=== PATIENT | male | born 1940 | race Caucasian/White ===

== ENCOUNTER 2020-05-07 14:14 | Emergency (ER) | payer MEDICARE ==
[~2020-05-07] VITALS: Ht 180.3 cm; Wt 86.2 kg
[~2020-05-07 14:14] MED LIST: AMLO5 PO; Amlodipine Bes2.5 MG PO; Ativan1 MG PO; CHOL10002 PO; CLON.1 PO; DILT60ER PO; ENOX40I SC; EUTHYROX125 MCG PO; FISH1000 PO; FOLI1; FOLI1 PO; HYDMOR4 PO; Hydrochloroth12.5 MG PO; IBUP800; IRBE150; LEVOXY; LEVSOD150; LEVSOD175 PO; LORAZEPAM0.5 MG PO; Levaquin500 MG PO; META800; META800 PO; METR250 PO; NAPR500 PO; OLME20; OLME20 PO; OMEP20ER; OMEP20ER PO; OMEPRAZOLE20 MG PO; OXYACE5T PO; PRED20; PROACE100; Percocet 5-3251 EACH PO; SUCR1 PO; SYNTHROID 175 MCG PO; VERA240ER; VERA240ERA; VERA240ERA PO; Valium5 MG PO
[2020-05-07 14:41] LABS: BASOPHILS ABSOLUTE AUTO 0.03 K/mm3 (0.00-0.23); BASOPHILS PERCENT AUTO 1 % (0-2); EOSINOPHILS ABSOLUTE AUTO 0.06 K/mm3 (0.00-0.68); EOSINOPHILS PERCENT AUTO 1 % (0-6); Hematocrit 42.2 % (37.0-53.0); Hemoglobin 14.9 g/dL (13.5-17.5); IMMATURE GRAN ABSOLUTE AUTO 0.02 K/mm3 (0.00-0.10); IMMATURE GRAN PERCENT AUTO 0 % (0-1); LYMPHOCYTES ABSOLUTE AUTO 1.66 K/mm3 (0.84-5.20); LYMPHOCYTES PERCENT AUTO 29 % (21-46); MONOCYTES ABSOLUTE AUTO 0.61 K/mm3 (0.16-1.47); MONOCYTES PERCENT AUTO 11 % (4-13); Mean Corpuscular HGB 32.7 pg (26.0-34.0); Mean Corpuscular HGB Conc 35.3 g/dL (31.5-36.5); Mean Corpuscular Volume 93 fL (80-100); Mean Platelet Volume 11.4 fL (9.1-12.4); NEUTROPHILS ABSOLUTE AUTO 3.32 K/mm3 (1.96-9.15); NEUTROPHILS PERCENT AUTO 58 % (41-73); Platelet Count 162 K/mm3 (150-400); RDW Coefficient Variation 12.4 % (11.7-14.2); RDW Standard Deviation 42.5 fL (35.1-46.3); Red Blood Cell Count 4.56 M/mm3 (4.30-5.90)
[2020-05-07 14:47] LABS: Source, Urine Clean Catch
[2020-05-07 15:05] LABS: Appearance, Urine Clear (Clear); Bilirubin, Urine Neg (Neg); Blood, Urine 4+ (Neg); Color, Urine Yellow (P-Yellow); Glucose Qualitative, Urine Neg (Neg); Ketones, Urine Neg (Neg); Leukocyte Esterase, Urine Neg (Neg); Nitrite, Urine Neg (Neg); Protein, Urine Neg (Neg); Specific Gravity, Urine 1.015 (1.003-1.022); Urobilinogen, Urine NORM (Normal)
[2020-05-07 15:08] LABS: Albumin, Blood 3.7 g/dL (3.4-5.0); Albumin/Globulin Ratio 1.1 (0.8-1.8); Bilirubin, Total 1.4 mg/dL (0.1-1.0); Bun/Creatinine Ratio 12.9 (12.0-20.0); Calcium, Blood 8.7 mg/dL (8.5-10.1); Creatinine, Blood 1.24 mg/dL (0.60-1.20); Globulin, Blood 3.4 g/dL (2.2-4.0); Potassium, Blood 4.3 mmol/L (3.5-5.5); Total Protein, Blood 7.1 g/dL (6.4-8.2)
[2020-05-07 15:31] LABS: Bacteria Rare /hpf; Squamous Epithelial Cells Not Seen /hpf (Few); White Blood Cells, Urine Rare /hpf (0-5)
[2020-05-07] MEDS ORDERED: Bactrim Ds Tab1 EACH PO (16:38)
== END 2020-05-07 17:02 | disposition home or self-care (01) ==
LOC: ER 14:14
PROVIDERS: Emergency Medicine
DX: N45.1 Epididymitis (principal); I10 Essential (primary) hypertension; E03.9 Hypothyroidism, unspecified; Z87.442 Personal history of urinary calculi; Z79.899 Other long term (current) drug therapy; Z88.0 Allergy status to penicillin; Z88.1 Allergy status to other antibiotic agents
CPT/HCPCS: 80053; 81001; 83690; 85025; 93005; 93010; 96374; 99284-25; A9270-GY; J2405

== ENCOUNTER 2020-07-17 09:07 | Emergency (ER) | payer MEDICARE ==
[~2020-07-17] VITALS: Ht 180.3 cm; Wt 88.9 kg
[~2020-07-17 09:07] MED LIST changes: +Bactrim Ds Tab1 EACH PO; +SULFAMETHOXAZO1 EAC1 PO
[2020-07-17] MEDS ORDERED: BACTRIM DS PO (09:38)
[2020-07-17] MEDS ORDERED: NYSTATIN100000 UN1 MT (09:40)
[2020-07-17 10:42] LABS: BASOPHILS ABSOLUTE AUTO 0.05 K/mm3 (0.00-0.23); BASOPHILS PERCENT AUTO 1 % (0-2); EOSINOPHILS ABSOLUTE AUTO 0.07 K/mm3 (0.00-0.68); EOSINOPHILS PERCENT AUTO 1 % (0-6); Hematocrit 42.8 % (37.0-53.0); Hemoglobin 15.5 g/dL (13.5-17.5); IMMATURE GRAN ABSOLUTE AUTO 0.01 K/mm3 (0.00-0.10); IMMATURE GRAN PERCENT AUTO 0 % (0-1); LYMPHOCYTES ABSOLUTE AUTO 1.71 K/mm3 (0.84-5.20); LYMPHOCYTES PERCENT AUTO 24 % (21-46); MONOCYTES ABSOLUTE AUTO 0.69 K/mm3 (0.16-1.47); MONOCYTES PERCENT AUTO 10 % (4-13); Mean Corpuscular HGB 33.7 pg (26.0-34.0); Mean Corpuscular HGB Conc 36.2 g/dL (31.5-36.5); Mean Corpuscular Volume 93 fL (80-100); NEUTROPHILS ABSOLUTE AUTO 4.52 K/mm3 (1.96-9.15); NEUTROPHILS PERCENT AUTO 64 % (41-73); Platelet Count 161 K/mm3 (150-400); RDW Coefficient Variation 12.4 % (11.7-14.2); RDW Standard Deviation 42.5 fL (35.1-46.3); White Blood Cell Count 7.05 K/mm3 (4.00-11.30)
[2020-07-17 10:53] LABS: Alanine Aminotransfer (ALT/SGP 21 U/L (12-78); Albumin/Globulin Ratio 1.3 (0.8-1.8); Alk Phos 44 U/L (50-136); Anion Gap 5 mmol/L (6-16); Aspartate Aminotrans (AST/SGOT 19 U/L (12-37); Bilirubin, Total 1.7 mg/dL (0.1-1.0); Blood Urea Nitrogen 16 mg/dL (8-24); Bun/Creatinine Ratio 12.5 (12.0-20.0); CO2, Blood 27 mmol/L (21-32); Calcium, Blood 9.1 mg/dL (8.5-10.1); Chloride, Blood 108 mmol/L (98-108); Creatinine, Blood 1.28 mg/dL (0.60-1.20); Globulin, Blood 3.1 g/dL (2.2-4.0); Glomerular Filtration Rate 57 (60-); Glucose, Blood 105 mg/dL (70-99); Potassium, Blood 3.8 mmol/L (3.5-5.5); Sodium, Blood 140 mmol/L (136-145); Total Protein, Blood 7.1 g/dL (6.4-8.2)
[2020-07-17 10:56] LABS: Troponin I <0.015 ng/mL (0.000-0.040)
[2020-07-17 10:59] LABS: Thyroid Stimulating Hormone 0.915 uIU/mL (0.360-4.800)
[2020-07-17 13:38] LABS: Source, Urine Voided
[2020-07-17 13:43] LABS: Appearance, Urine Clear (Clear); Bilirubin, Urine Neg (Neg); Blood, Urine Neg (Neg); Color, Urine Yellow (P-Yellow); Glucose Qualitative, Urine Neg (Neg); Ketones, Urine Neg (Neg); Leukocyte Esterase, Urine Neg (Neg); Nitrite, Urine Neg (Neg); Protein, Urine Neg (Neg); Urobilinogen, Urine NORM (Normal); pH, Urine 6.5 (5.0-8.0)
[2020-07-18] MEDS ORDERED: [UNRECOGNIZED DRUG - CODE] PO (11:40)
[2020-12-14] MEDS ORDERED: AMLO10 PO (10:11)
[2020-12-14] MEDS ORDERED: ASPI325EC PO (10:11)
[2020-12-14] MEDS ORDERED: ACIDOPHILUS1 EAC3 PO (10:11)
[2020-12-14] MEDS ORDERED: ATOR10 PO (10:12)
[2020-12-14] MEDS ORDERED: CLOT10 PO (10:12)
[2020-12-14] MEDS ORDERED: LORA.5 ×2 (10:12→10:16)
[2020-12-14] MEDS ORDERED: CLOB.05TO (10:12)
[2020-12-14] MEDS ORDERED: CLARITIN-D 121 EAC1 PO (10:12)
[2020-12-14] MEDS ORDERED: HYDROCORTISONE ×2 (10:13→10:14)
[2020-12-14] MEDS ORDERED: LIDOCAINE ×2 (10:13→10:14)
[2020-12-14] MEDS ORDERED: Diflucan150 MG PO (10:15)
[2020-12-14] MEDS ORDERED: BISA10S PR (10:15)
[2020-12-14] MEDS ORDERED: FLUC100 PO (10:15)
[2020-12-14] MEDS ORDERED: MECL25 (10:16)
[2020-12-14] MEDS ORDERED: LEVO-T125 MC1 PO (10:16)
[2020-12-14] MEDS ORDERED: NYSTATIN100000 UN1 MT (10:17)
[2020-12-14] MEDS ORDERED: OMEP20ER PO (10:17)
[2020-12-14] MEDS ORDERED: OLME20 PO (10:17)
[2020-12-14] MEDS ORDERED: METAMUCIL POWD575 GM PO (10:17)
[2020-12-14] MEDS ORDERED: ACETAMINOPHEN500 MG PO (10:18)
== END 2020-07-17 14:37 | disposition home or self-care (01) ==
LOC: ER 09:07
PROVIDERS: Emergency Medicine
DX: F43.9 Reaction to severe stress, unspecified (principal); I10 Essential (primary) hypertension; E03.9 Hypothyroidism, unspecified; Z88.0 Allergy status to penicillin; Z88.1 Allergy status to other antibiotic agents; Z79.899 Other long term (current) drug therapy
CPT/HCPCS: 70450; 76870; 80053; 81003; 84443; 84484; 85025; 93005; 93010; 99285-25

== ENCOUNTER 2020-07-18 07:52 | Observation (INO) | payer MEDICARE ==
[~2020-07-18] VITALS: Ht 177.8 cm; Wt 88.0 kg
[~2020-07-18 07:52] MED LIST changes: +BACTRIM DS PO; +NYSTATIN100000 UN1 MT
[2020-07-18 08:58] LABS: BASOPHILS ABSOLUTE AUTO 0.05 K/mm3 (0.00-0.23); BASOPHILS PERCENT AUTO 1 % (0-2); EOSINOPHILS ABSOLUTE AUTO 0.06 K/mm3 (0.00-0.68); EOSINOPHILS PERCENT AUTO 1 % (0-6); Hematocrit 44.1 % (37.0-53.0); Hemoglobin 15.6 g/dL (13.5-17.5); IMMATURE GRAN ABSOLUTE AUTO 0.01 K/mm3 (0.00-0.10); IMMATURE GRAN PERCENT AUTO 0 % (0-1); LYMPHOCYTES ABSOLUTE AUTO 1.45 K/mm3 (0.84-5.20); LYMPHOCYTES PERCENT AUTO 32 % (21-46); MONOCYTES ABSOLUTE AUTO 0.46 K/mm3 (0.16-1.47); MONOCYTES PERCENT AUTO 10 % (4-13); Mean Corpuscular HGB 33.2 pg (26.0-34.0); Mean Corpuscular HGB Conc 35.4 g/dL (31.5-36.5); Mean Corpuscular Volume 94 fL (80-100); Mean Platelet Volume 11.4 fL (9.1-12.4); NEUTROPHILS ABSOLUTE AUTO 2.56 K/mm3 (1.96-9.15); NEUTROPHILS PERCENT AUTO 56 % (41-73); Platelet Count 151 K/mm3 (150-400); RDW Coefficient Variation 12.5 % (11.7-14.2); RDW Standard Deviation 43.3 fL (35.1-46.3); White Blood Cell Count 4.59 K/mm3 (4.00-11.30)
[2020-07-18 09:20] LABS: Alanine Aminotransfer (ALT/SGP 21 U/L (12-78); Albumin, Blood 3.9 g/dL (3.4-5.0); Albumin/Globulin Ratio 1.1 (0.8-1.8); Alk Phos 48 U/L (50-136); Anion Gap 7 mmol/L (6-16); Aspartate Aminotrans (AST/SGOT 20 U/L (12-37); Bilirubin, Total 2.7 mg/dL (0.1-1.0); Blood Urea Nitrogen 19 mg/dL (8-24); CO2, Blood 23 mmol/L (21-32); Calcium, Blood 9.1 mg/dL (8.5-10.1); Chloride, Blood 108 mmol/L (98-108); Creatinine, Blood 1.46 mg/dL (0.60-1.20); Globulin, Blood 3.4 g/dL (2.2-4.0); Glomerular Filtration Rate 49 (60-); Glucose, Blood 106 mg/dL (70-99); Potassium, Blood 4.1 mmol/L (3.5-5.5); Sodium, Blood 138 mmol/L (136-145); Total Protein, Blood 7.3 g/dL (6.4-8.2); Troponin I <0.015 ng/mL (0.000-0.040)
[2020-07-18] MEDS ORDERED: [UNRECOGNIZED DRUG - CODE] PO (11:40)
--- NOTE | 2020-07-18 16:29 | NUR ---
ADMISSION NOTED TO BE MEDICAL STATUS. NOTIFIED JACK GILLETTE RN WHO CALLED DR. ELAM AND HE CONFIRMED THAT PATIENT IS MEDICAL STATUS. NOTIFIED ED RN AND MACHINE STAKER.
--- NOTE | 2020-07-18 19:35 | NUR ---
HE ARRIVED TO [facility] THIS EVENING FROM THE ED. HE IS A&O, PLEASANT AND COOPERATIVE. HE HAD HIS DAUGHTER AND GRANDDAUGHTER WITH HIM. HE HAS NO PAIN, DIZZINESS OR SOB. HE FEELS HIS MEMORY IS NOT QUITE AT HIS BASELINE. HE IS EATING DINNER. WILL PUT TELE ON WHEN IT ARRIVES. NIGHTSHIFT NURSE WILL SET BED ALARM LATER IN CASE HE BECOMES CONFUSED BY MORNING LIKE HE DID AT HOME THE PAST 2 MORNINGS. ORIENTED TO ROOM AND FALL PRECAUTIONS.
--- NOTE | 2020-07-19 02:08 | NUR ---
PT REFUSED SCD'S, NURSE NOTIFED
--- NOTE | 2020-07-19 06:42 | NUR ---
SUMMARY: PT A/OX3-4 W/BED ALARM ON D/T MILDLY FORGETFULL AT TIMES AND POSSIBLE FALL RISK. HE'S PLEASANT AND COOPERATIVE W/CARE AND IS INDEPENDENT AT BASELINE SO ISN'T ACCUSTOMED TO REQUIRING ASSIST BUT UNDERSTANDS HEIGHTENED FALL RISK R/T SYMPTOMS PRECEEDING ADMISSION. HE'S DENIED DIZZYNESS, CONFUSION, CP, WEAKNESS AND ALL OTHER S/S DISTRESS. HE DOES ADMIT THAT STRENGTH SEEMS TO CORRELATE W/MENTATION AND WHEN EXPERIENCING BOUTS OF AMS HE IS VERY WEAK BUT WHEN A/O HE HAS FULL STRENGTH PER USUAL. PT WAS S.TERI T/O NOCTE ON TELEMETRY W/HR 40'S AND UP TO 70'S W/AMBULAITION. HE WAS SBA TO TOILET TO VOID AND DENIED ANY ISSUES DURING TRANSFER. PT REFUSED PAS BUT HAD LOVENOX FOR DVT PROPHYLAXIS. FLU VAC OBTAINED THIS SHIFT. AUTHORIZED PT TO RECIEVED HS CLONIDINE DESPITE BRADYCARDIA AND HR DIDN'T APPEAR TO BE ADVERSELY EFFECTED. NO ACUTE CHANGES, VSS/AFEBRILE. WCTM AND REPORT TO DAY RN.
--- NOTE | 2020-07-19 10:21 | NUR ---
ADMIT:07/18/20 DISCHARGE: DX: encephalopathy CC: [email or web address] DION CALL: RESIDENCE: home CAREGIVER: Hippa: DEXTER COTTRELL (CHILD) DX: asthma, htn, ckd 3, spinal stenosis, osteoarthritis, naman, see list DME: no record CCM: no record HOME HEALTH: no record SUMMARY:Admit 07/18/20 Asif is being seen by Dr Kamara this week- through Saturday. Obs status. Will assess and discuss discharge planning. melba Coyd ( tool repair technician) provided information in the ED. ASSESSMENT: 1. Acute onset of dizziness with dysarthria, cannot rule out transient ischemic attack.
--- NOTE | 2020-07-19 11:10 | NUR ---
In bed, patient was answering questions for MRI screening. In the middle of answering questions, patient was noted to have difficulty finding words. Patient stated, "I am going to be honest with you, I am having that episode again" and wasn't able to find any more words for approximately 1 minute. Patient reported mild dizziness, blurry vision, and pounding in the temples of his head. Also reports a head ache of 3/10. Was able to participate with ortho vitals. MRI form completed and faxed. Dr. Kamara notified of ortho vitals and this episode.
[2020-07-19 14:13] LABS: Percent Saturation 79.5 % (20.0-50.0)
--- NOTE | 2020-07-19 15:05 | NUR ---
CONSTIPATION C/O constipation and not having a bm x 3 days. Reports regular daily bowels with metamucil bid. Received T.O. from Dr. Kamara for daily PRN Dulcolax for constipation and Metamucil 1 pack BID.
--- NOTE | 2020-07-19 16:58 | NUR ---
07/19/20 Met with Asif in his room, completed assessment for returning home. He hopes to discharge back home in the next couple of days. His daughter and grandaughter live in the area and can assist him if needed. No home health or dme needed at this visit. Left transition of care form from [place] hanging from white board. Will continue to follow him for discharge planning. cp
--- NOTE | 2020-07-19 19:18 | NUR ---
Shift Summary A/Ox3, family reports patient can be a little forgetful. Up independently. No other episode of blurry vision/difficulty finding words since this morning. Daughter visited and would like an update regarding diagnostic results tomorrow, info passed onto night RN. Tele: SB 47. Per tele, patient HR has fluctuated from mid 70's to low 42's throughout shift. Worked with PT/OT, independent in room. Make needs known. Report given to oncoming RN.
--- NOTE | 2020-07-20 01:42 | NUR ---
PCU SET UP OPERATOR ALERTED RN THAT PT REMAINS BRADYCARDIC BUT HR HAS TRENDED DOWNWARD TO 37 BPM, SUSTAINING FOR 5-10 MINUTES AT A TIME AND AVERGING 40'S BPM. HE'S SLEEPING AND AWOKE TO DENY S/S CARDIAC DISTRESS. MADE AWARE W/CMP RX'D FOR AM TO CHECK POTASSIUM. NO ADDITIONAL ORDERS RECIEVED AT THIS TIME. WCTM TO MONITOR FOR ACUTE CHANGES/WORSENING.
[2020-07-20 05:45] LABS: Alanine Aminotransfer (ALT/SGP 21 U/L (12-78); Albumin, Blood 3.7 g/dL (3.4-5.0); Albumin/Globulin Ratio 1.1 (0.8-1.8); Alk Phos 43 U/L (50-136); Anion Gap 7 mmol/L (6-16); Aspartate Aminotrans (AST/SGOT 21 U/L (12-37); Bilirubin, Total 2.3 mg/dL (0.1-1.0); Blood Urea Nitrogen 23 mg/dL (8-24); Bun/Creatinine Ratio 16.7 (12.0-20.0); CHOL/HDL RATIO 4.1; CO2, Blood 24 mmol/L (21-32); Calcium, Blood 8.6 mg/dL (8.5-10.1); Chloride, Blood 108 mmol/L (98-108); Cholesterol 147 mg/dL (50-200); Creatinine, Blood 1.38 mg/dL (0.60-1.20); Globulin, Blood 3.4 g/dL (2.2-4.0); Glomerular Filtration Rate 53 (60-); Glucose, Blood 107 mg/dL (70-99); HDL Cholesterol 36 mg/dL (>39); LDL/HDL RATIO 2.1; Low Density Lipoprotein Chol 77 mg/dL (0-110); Potassium, Blood 3.9 mmol/L (3.5-5.5); Sodium, Blood 139 mmol/L (136-145); Total Protein, Blood 7.1 g/dL (6.4-8.2); Triglycerides 170 mg/dL (30-160); Very Low Density Lipoprot Chol 34 mg/dL (6-32)
--- NOTE | 2020-07-20 06:27 | NUR ---
SUMMARY: PT A/OX4, PLEASANT/COOPERATIVE AND SPECIFIES NEEDS. HES' UP INDEPENDENTLY IN ROOM BUT AWARE OF LIMITATIONS AND NEED TO CALL FOR SBA IF DIZZY, HAS BLURRED VISION OR ANY OTHER S/S DISTRESS. HE'S SLEPT MAJORITY OF NOCTE EXCEPT WHEN UP TO VOID. HE HAD X1 EPISODE OF MILD DIZZYNESS BUT IT RESOLVED SPONTANEOSLY AFTER ONLY A FEW MINUTES AND THEIR WERE NO ADDITIONAL ASSOCIATED SYMPTOMS. HE WAS S.TERI MOST OF NOCTE W/HR AVERAGING 40'S BUT LOW 37 BPM, RANGE 37-62 BPM THIS SHIFT. MD AWARE W/CMP RX'D TO CHECK POTASSIUM WHICH WAS 3.9 THIS AM. FASTING LIPID PANEL COMPLETED, SEE LABS FOR DETAILS. NO ACUTE CHANGES, VSS/AFEBRILE BUT PT SLIGHTLY HYPERTENSIVE THIS AM (160/80) AND HAS SCHEDULED 0900 ANTIHYPERTENSIVES. WCTM AND REPORT TO DAY RN.
--- NOTE | 2020-07-20 13:06 | NUR ---
ASKED IF HE WANTED CLONIDINE HELD WITH HEART RATE AT 41. HELD AND THEN TALK TO TO SEE WHAT HE WANTS DONE AFTER HIS EVAL.
--- NOTE | 2020-07-20 13:18 | NUR ---
NOTIFIED WE CAN NOT DO PHLEBOTOMY HE ORDERED. CAN DO AT [facility]. STS HE CAN DO IT AT CLINIC. ADVISED THAT HOSPITAL CAN NOT DO WHAT ORDERED. AWAITING
--- NOTE | 2020-07-20 14:30 | NUR ---
LEFT VOICE MAIL WITH - SAW PATIENT. CONTINUE ASA AND STATIN. GRADUAL DECREASE CLONIDINE - BID FOR 1 WK THEN QD FOR ONE WK THEN QOD FOR 3 DAYS. NEEDS ZIO MONITOR FOR 30 DAYS THEN F/U CARDIOLOGY
--- NOTE | 2020-07-20 18:06 | NUR ---
ALERT. ORIENTED. COOPERATIVE. PLEASANT. ABLE TO MAKE NEEDS KNOWN. HAD EPISODE OF WEAKNESS AND DIFFICULTY FORMING WORDS TODAY WITH AWARE. AND WERE IN FOR CONSULT. IF PATIENT IS D'C TOMORROW WILL NEED ZIO MONITOR AND HAS F/U APPT WITH FOR LATE AFTERNOON. UNLABORED RESPIRATIONS. DENIES ANY CHEST PAIN OR PRESSURE. TELE ONAND AT THIS TIME SB AT 51. ADVISED PCU TECH PATIENT SHOULD BE 50-60 AND HOPEFULLY WILL NOT FALL INTO 40'S. CLONIDINE D'C. WCTM
--- NOTE | 2020-07-21 03:44 | NUR ---
SHIFT SUMMARY PATIENT HAD NO ACUTE CHANGES OBSERVED. AXOX 3 AND ONE ASSIST TO BSC. PIV REMAINS INTACT. DISTANCE LEARNING ADMINISTRATOR REPORTS SB@50. DENIES PAIN, SOB, AND N/V. HYPERTENSIVE. BP MEDICATION CHANGED TO NORVASC. NS INFUSING AT 125mL/HR. NO EVENTS OF BLURRY VISION OR DIZZINESS. AFEBRILE. CALL LIGHT IN REACH. BED IN LOWEST POSITION. WILL CONTINUE TO MONITOR UNTIL DAY SHIFT NURSE ASSUMES CARE.
--- NOTE | 2020-07-21 11:27 | NUR ---
DR. SINGH IN TO VISIT AT ABOUT 0930. UPPED NORVASC TO 10 MG DAILY AND TO GET XTRA 5 MG TODAY.
--- NOTE | 2020-07-21 12:11 | NUR ---
PER DR. ELAM GIVE ANOTHER OLMESARTAN IF B.P. ABOVE 150 SYSTOLIC. STOP IV FLUIDS
[2020-07-21] MEDS ORDERED: HYDRA25 PO (14:26)
--- NOTE | 2020-07-21 14:27 | NUR ---
TALKED TO ABOUT B.P. GIVE HYDRALAZINE 20 MG IV NOW AND HYDRALAZINE ON D'C ORDER 25 MG BID HOLD FOR SYSTOLIC <110.
[2020-07-21] MEDS ORDERED: AMLO10 PO (14:54)
[2020-07-21] MEDS ORDERED: ATOR10 PO (14:54)
[2020-07-21] MEDS ORDERED: ASPI325 PO (14:54)
--- NOTE | 2020-07-21 14:56 | NUR ---
TALKED TO ABOUT B.P. AND HEART RATE IN 130'S. NITRO PASTE 1IN C.W. TO COME DOWN
[2020-07-21 15:31] LABS: Source, Urine Catheter
[2020-07-21 15:40] LABS: Appearance, Urine Clear (Clear); Bilirubin, Urine Neg (Neg); Blood, Urine Neg (Neg); Color, Urine Yellow (P-Yellow); Glucose Qualitative, Urine Neg (Neg); Ketones, Urine Neg (Neg); Leukocyte Esterase, Urine Neg (Neg); Nitrite, Urine Neg (Neg); Protein, Urine Neg (Neg); Specific Gravity, Urine 1.005 (1.003-1.022); Urobilinogen, Urine NORM (Normal)
--- NOTE | 2020-07-21 16:57 | NUR ---
1510 IN ROOM.SEE VS. EKG BEING DONE. ORDERS FOR LABETELOL AND THEN ATIVAN. NO FEVER. PATIENT WAS SHAKING, WHICH STARTED AFTER ABOUT 10 TO 15 MIN AFTER RECEIVING APRESOLINE IV. PCU TECH AWARE OF MEDS GIVEN. VSS STABLE AFTER LABETELOL GIVEN. 165 AC TAKEN OUT PER PATIENT REQUEST WITH AWARE. MD UPDATED ON VS AND HE TALKED TO DR. SINGH ABOUT EPISODE. PATIENT TO BE BACK ON CATAPRESS DECREASING DOSE.
--- NOTE | 2020-07-21 17:35 | NUR ---
07/21/[address] Kamara, hope to discharge today, patients condition worsened, electrocardiogram ordered. Met with daughter out side of patient room, concerned for her fathers condition. Unsure of discharge plan at this time. Will continue to follow for discharge planning. cp
--- NOTE | 2020-07-21 17:46 | NUR ---
ASKED FOR MED FOR ANXIETY. STS WILL PUT HIM ON ATIVAN AND HE WILL ORDER IT.
--- NOTE | 2020-07-21 18:37 | NUR ---
SEE PRIOR NOTES. ALERT. ORIENTED. DENIES ANY PAIN/DISCOMFORT. HAS URINATED SINCE [place] AC. COOPERATIVE. UNLABORED RESPIRATION. ADVISED PATIENT/FAMILY WILL BE ON DECREASING DOSE OF CATAPRESS. WILL PROBABLY HAVE PHLEBOTOMY DONE AT OFFICE ON SATURDAY. APPEARS TO BE RESTING COMFORTABLY AT THIS TIME. CURRENTLY SR AT 94. STEADY GAIT IN ROOM. [facility]
--- NOTE | 2020-07-22 05:07 | NUR ---
SHIFT SUMMARY ADMITTED FOR BRADYCARDIA (S/SX DIZZY, SLURRED SPEECH). FULL CODE. PLAN IS FOR DC HOME TODAY IF STABLE. DR SINGH IS CARDIOLOGY CONSULT. TELEMETRY: NSR @ 88 BPM. PT RECENTLY STOPPED TAKING CLONIDINE ABRUPTLY, WHICH COULD BE CAUSATION OF EPISODIC TACHYCARDIA AND HTN. PT DID HAVE ONE EPISODE OF TACHYCARDIA THIS SHIFT, WAS FOUND TO BE AMBULATING IN HIS ROOM. THIS EPISODE WAS BRIEF ACCORDING TO TELEMETRY. PT DENIED S/SX. HX: HEMOCHROMATOSIS REQUIRING PHLEBOTOMY (DR KHAN IS CONSULT)
--- NOTE | 2020-07-22 05:29 | NUR ---
PT NAUSEOUS PT ACTIVELY VOMITING AND TREMBLING. ZOFRAN AND ATIVAN ADMINISTERED. WILL HOLD THYROID PO MED UNTIL NAUSEA SUBSIDES
[2020-07-22] MEDS ORDERED: Ativan1 MG PO (14:22)
--- NOTE | 2020-07-22 16:30 | NUR ---
DISCHARGE SUMMARY PT A/O X4; PLEASANT AND COOPERATIVE WITH CARE. PT C/O ANXIETY AND MEDICATED WITH ATIVAN WITH GOOD EFFECT. PT DISCHARGED HOME WITH ATIVAN PRESCRIPTION. PREVIOUSLY, THE PATIENT WAS ABRUPTLY TAKEN OFF HIS CLONIDINE AND EXPERIENCED WITHDRAWAL SYMPTOMS. PT HAS SINCE BEEN PUT BACK ON HIS CLONIDINE AND THOSE SYMPTOMS HAVE SUBSIDED. HAD 2 MOMENTS OF TACHYCARDIA THIS SHIFT WHEN AMBULATING AND AN ELEVATED BP; PHYSICIAN NOTIFIED. DC'D HOME WITH A ZIO PATCH AND WILL FOLLOW UP WITH VANDANA, DR. SINGH, AND DR. KHAN. PT TO TAPER OFF OF HIS CLONIDINE PRESCRIPTION WELL AND INSTRUCTIONS WERE PROVIDED TO THE PATIENT. DAUGHTER DROVE THE PATIENT HOME.
--- NOTE | 2020-07-22 17:33 | NUR ---
SUMMARY:Admit 07/18/20 07/22/[address] Kamara, follow up efm 1 week. Met with Asif, chino amber call on Saturday or Saturday, call center agent number, urgent care. Did not identify any care needs today. Daughter purchased a fall pendant for him. Follow up cardiology 1 month. Daughter will pick him up and take him to pharmacy if needed. cp
[2020-07-27 20:07] LABS: METANEPH/CREAT RATIO 0.3 (0.0-1.0)
[2020-07-31 04:11] LABS: 5-HIAA, URINE 1.2 mg/L (Undefined); VMA/CRT, RANDOM U 3.9 (0.0-6.0)
[2020-12-14] MEDS ORDERED: ASPI325EC PO (10:11)
[2020-12-14] MEDS ORDERED: AMLO10 PO (10:11)
[2020-12-14] MEDS ORDERED: ACIDOPHILUS1 EAC3 PO (10:11)
[2020-12-14] MEDS ORDERED: LORA.5 ×2 (10:12→10:16)
[2020-12-14] MEDS ORDERED: CLOB.05TO (10:12)
[2020-12-14] MEDS ORDERED: CLOT10 PO (10:12)
[2020-12-14] MEDS ORDERED: CLARITIN-D 121 EAC1 PO (10:12)
[2020-12-14] MEDS ORDERED: ATOR10 PO (10:12)
[2020-12-14] MEDS ORDERED: LIDOCAINE ×2 (10:13→10:14)
[2020-12-14] MEDS ORDERED: HYDROCORTISONE ×2 (10:13→10:14)
[2020-12-14] MEDS ORDERED: Diflucan150 MG PO (10:15)
[2020-12-14] MEDS ORDERED: BISA10S PR (10:15)
[2020-12-14] MEDS ORDERED: FLUC100 PO (10:15)
[2020-12-14] MEDS ORDERED: MECL25 (10:16)
[2020-12-14] MEDS ORDERED: LEVO-T125 MC1 PO (10:16)
[2020-12-14] MEDS ORDERED: OMEP20ER PO (10:17)
[2020-12-14] MEDS ORDERED: OLME20 PO (10:17)
[2020-12-14] MEDS ORDERED: METAMUCIL POWD575 GM PO (10:17)
[2020-12-14] MEDS ORDERED: NYSTATIN100000 UN1 MT (10:17)
[2020-12-14] MEDS ORDERED: ACETAMINOPHEN500 MG PO (10:18)
== END 2020-07-22 16:18 | disposition home or self-care (01) ==
LOC: ER 07:52 → MEDS 07:53 → ERHOLD 07:53 → MEDS 17:54 → ENPENDDIS 07-22 13:40 → MEDS 07-22 16:18
PROVIDERS: Emergency Medicine; ADMIT Internal Medicine
DX: R42 Dizziness and giddiness (principal); R41.82 Altered mental status, unspecified; R47.1 Dysarthria and anarthria; R00.1 Bradycardia, unspecified; I44.0 Atrioventricular block, first degree; E83.110 Hereditary hemochromatosis; I16.1 Hypertensive emergency; I12.9 Hypertensive chronic kidney disease with stage 1 through stage 4 chronic kidney disease, or unspecified chronic kidney disease; N18.30 Chronic kidney disease, stage 3 unspecified; E03.9 Hypothyroidism, unspecified; I86.1 Scrotal varices; B37.0 Candidal stomatitis; I95.1 Orthostatic hypotension; E78.1 Pure hyperglyceridemia; F41.9 Anxiety disorder, unspecified; Z96.641 Presence of right artificial hip joint; Z88.1 Allergy status to other antibiotic agents; Z88.0 Allergy status to penicillin; Z23 Encounter for immunization
CPT/HCPCS: 36415; 70450; 70551; 71045; 80053; 80061; 81003; 82570; 82728; 83497; 83540; 83550; 83835; 83880; 84439; 84484; 84585; 85025; 93005; 93010; 93246; 93306; 96372; 96374; 96375; 96376; 97165; 97530; 99285-25; A9270; G0008; G0378; J0360; J1650; J2060; J2405; J7030; Q2038

== ENCOUNTER 2020-07-28 08:10 | Emergency (ER) | payer MEDICARE ==
[~2020-07-28] VITALS: Ht 182.9 cm; Wt 86.2 kg
[~2020-07-28 08:10] MED LIST changes: +AMLO10 PO; +ASPI325 PO; +ATOR10 PO; +HYDRA25 PO; +[UNRECOGNIZED DRUG - CODE] PO
[2020-07-28] MEDS ORDERED: LIDO5TO UD (08:43)
[2020-07-28 08:46] LABS: BASOPHILS ABSOLUTE AUTO 0.06 K/mm3 (0.00-0.23); BASOPHILS PERCENT AUTO 1 % (0-2); EOSINOPHILS ABSOLUTE AUTO 0.07 K/mm3 (0.00-0.68); EOSINOPHILS PERCENT AUTO 1 % (0-6); Hematocrit 37.5 % (37.0-53.0); Hemoglobin 13.9 g/dL (13.5-17.5); IMMATURE GRAN ABSOLUTE AUTO 0.02 K/mm3 (0.00-0.10); IMMATURE GRAN PERCENT AUTO 0 % (0-1); LYMPHOCYTES ABSOLUTE AUTO 1.97 K/mm3 (0.84-5.20); LYMPHOCYTES PERCENT AUTO 22 % (21-46); MONOCYTES ABSOLUTE AUTO 0.63 K/mm3 (0.16-1.47); MONOCYTES PERCENT AUTO 7 % (4-13); Mean Corpuscular HGB 33.9 pg (26.0-34.0); Mean Corpuscular HGB Conc 37.1 g/dL (31.5-36.5); Mean Corpuscular Volume 92 fL (80-100); NEUTROPHILS ABSOLUTE AUTO 6.34 K/mm3 (1.96-9.15); NEUTROPHILS PERCENT AUTO 70 % (41-73); Platelet Count 190 K/mm3 (150-400); RDW Coefficient Variation 12.4 % (11.7-14.2); RDW Standard Deviation 41.6 fL (35.1-46.3); White Blood Cell Count 9.09 K/mm3 (4.00-11.30)
[2020-07-28 09:16] LABS: Alanine Aminotransfer (ALT/SGP 20 U/L (12-78); Albumin/Globulin Ratio 1.2 (0.8-1.8); Alk Phos 38 U/L (50-136); Anion Gap 9 mmol/L (6-16); Aspartate Aminotrans (AST/SGOT 16 U/L (12-37); Blood Urea Nitrogen 19 mg/dL (8-24); Bun/Creatinine Ratio 16.4 (12.0-20.0); CO2, Blood 23 mmol/L (21-32); Calcium, Blood 8.6 mg/dL (8.5-10.1); Chloride, Blood 109 mmol/L (98-108); Creatinine, Blood 1.16 mg/dL (0.60-1.20); Globulin, Blood 3.2 g/dL (2.2-4.0); Glomerular Filtration Rate >60 (60-); Glucose, Blood 123 mg/dL (70-99); Potassium, Blood 3.2 mmol/L (3.5-5.5); Sodium, Blood 141 mmol/L (136-145); Total Protein, Blood 7.2 g/dL (6.4-8.2)
[2020-07-28] MEDS ORDERED: BISA10S PR (10:08)
[2020-12-14] MEDS ORDERED: ASPI325EC PO (10:11)
[2020-12-14] MEDS ORDERED: AMLO10 PO (10:11)
[2020-12-14] MEDS ORDERED: ACIDOPHILUS1 EAC3 PO (10:11)
[2020-12-14] MEDS ORDERED: CLARITIN-D 121 EAC1 PO (10:12)
[2020-12-14] MEDS ORDERED: LORA.5 ×2 (10:12→10:16)
[2020-12-14] MEDS ORDERED: CLOT10 PO (10:12)
[2020-12-14] MEDS ORDERED: ATOR10 PO (10:12)
[2020-12-14] MEDS ORDERED: CLOB.05TO (10:12)
[2020-12-14] MEDS ORDERED: LIDOCAINE ×2 (10:13→10:14)
[2020-12-14] MEDS ORDERED: HYDROCORTISONE ×2 (10:13→10:14)
[2020-12-14] MEDS ORDERED: Diflucan150 MG PO (10:15)
[2020-12-14] MEDS ORDERED: BISA10S PR (10:15)
[2020-12-14] MEDS ORDERED: FLUC100 PO (10:15)
[2020-12-14] MEDS ORDERED: LEVO-T125 MC1 PO (10:16)
[2020-12-14] MEDS ORDERED: MECL25 (10:16)
[2020-12-14] MEDS ORDERED: METAMUCIL POWD575 GM PO (10:17)
[2020-12-14] MEDS ORDERED: OMEP20ER PO (10:17)
[2020-12-14] MEDS ORDERED: NYSTATIN100000 UN1 MT (10:17)
[2020-12-14] MEDS ORDERED: OLME20 PO (10:17)
[2020-12-14] MEDS ORDERED: ACETAMINOPHEN500 MG PO (10:18)
== END 2020-07-28 10:52 | disposition home or self-care (01) ==
LOC: ER 08:10
PROVIDERS: Emergency Medicine
DX: K56.41 Fecal impaction (principal); I10 Essential (primary) hypertension; E03.9 Hypothyroidism, unspecified; N18.30 Chronic kidney disease, stage 3 unspecified; Z88.0 Allergy status to penicillin; Z88.1 Allergy status to other antibiotic agents; Z79.82 Long term (current) use of aspirin; Z79.02 Long term (current) use of antithrombotics/antiplatelets; Z79.899 Other long term (current) drug therapy
CPT/HCPCS: 36415; 74018; 80053; 85025; 99284-25; A9270

== ENCOUNTER 2020-12-22 08:43 | Day surgery (SDC) | payer MEDICARE ==
[~2020-12-22] VITALS: Ht 180.3 cm; Wt 89.9 kg
[~2020-12-22 08:43] MED LIST changes: +ACETAMINOPHEN500 MG PO; +ACIDOPHILUS1 EAC3 PO; +ASPI325EC PO; +BISA10S PR; +CLARITIN-D 121 EAC1 PO; +CLOB.05TO; +CLOT10 PO; +Diflucan150 MG PO; +FLUC100 PO; +HYDROCORTISONE; +LEVO-T125 MC1 PO; +LIDO5TO UD; +LIDOCAINE; +LORA.5; +MECL25; +METAMUCIL POWD575 GM PO
== END 2020-12-22 10:55 | disposition home or self-care (01) ==
LOC: ORSCSDS 08:43
PROVIDERS: Surgery
PROC: 0DB48ZX Excision of Esophagogastric Junction, Via Natural or Artificial Opening Endoscopic, Diagnostic (ICD-10-PCS; principal; 2020-12-22 10:45)
PROC: 0DB68ZX Excision of Stomach, Via Natural or Artificial Opening Endoscopic, Diagnostic (ICD-10-PCS; principal; 2020-12-22 10:45)
DX: K22.70 Barrett's esophagus without dysplasia (principal); K44.9 Diaphragmatic hernia without obstruction or gangrene; K21.00 Gastro-esophageal reflux disease with esophagitis, without bleeding; K31.89 Other diseases of stomach and duodenum; K29.70 Gastritis, unspecified, without bleeding
CPT/HCPCS: 82947; 88305; 88342; J2704; J7120

== ENCOUNTER → 2021-12-07 | Outpatient (CLI) | payer MEDICARE ==
[2021-12-08 10:15] LABS: Stool Occult Bld Immuno 1 Negative (NEGATIVE)
== END | disposition home or self-care (01) ==
LOC: LAB 08:15 → LAB SHORT 08:15
PROVIDERS: Internal Medicine Hematology & Oncology
DX: E83.119 Hemochromatosis, unspecified (principal); R53.83 Other fatigue
CPT/HCPCS: 82274

== ENCOUNTER 2022-05-01 11:19 | Day surgery (SDC) | payer MEDICARE | END 2022-05-01 15:24 | disposition home or self-care (01) | DX: D50.9 Iron deficiency anemia, unspecified (principal); Z86.010 Personal history of colon polyps; Z80.0 Family history of malignant neoplasm of digestive organs; K57.30 Diverticulosis of large intestine without perforation or abscess without bleeding; K64.4 Residual hemorrhoidal skin tags; K44.9 Diaphragmatic hernia without obstruction or gangrene; E11.9 Type 2 diabetes mellitus without complications; E03.9 Hypothyroidism, unspecified; I12.9 Hypertensive chronic kidney disease with stage 1 through stage 4 chronic kidney disease, or unspecified chronic kidney disease; N18.30 Chronic kidney disease, stage 3 unspecified; Z79.899 Other long term (current) drug therapy ==

== ENCOUNTER 2022-10-08 07:48 | Emergency (ER) | payer MEDICARE ==
[~2022-10-08] VITALS: Ht 180.3 cm; Wt 93.0 kg
[2022-10-08] MEDS ORDERED: IBU800 M1 PO (08:05)
[2022-10-08 08:33] LABS: BASOPHILS ABSOLUTE AUTO 0.06 K/mm3 (0.00-0.23); BASOPHILS PERCENT AUTO 1 % (0-2); EOSINOPHILS ABSOLUTE AUTO 0.03 K/mm3 (0.00-0.68); EOSINOPHILS PERCENT AUTO 0 % (0-6); Hematocrit 41.6 % (37.0-53.0); Hemoglobin 14.7 g/dL (13.5-17.5); IMMATURE GRAN ABSOLUTE AUTO 0.02 K/mm3 (0.00-0.10); IMMATURE GRAN PERCENT AUTO 0 % (0-1); LYMPHOCYTES ABSOLUTE AUTO 1.18 K/mm3 (0.84-5.20); LYMPHOCYTES PERCENT AUTO 12 % (21-46); MONOCYTES ABSOLUTE AUTO 1.07 K/mm3 (0.16-1.47); MONOCYTES PERCENT AUTO 11 % (4-13); Mean Corpuscular HGB Conc 35.3 g/dL (31.5-36.5); Mean Corpuscular Volume 94 fL (80-100); Mean Platelet Volume 11.3 fL (9.1-12.4); NEUTROPHILS ABSOLUTE AUTO 7.58 K/mm3 (1.96-9.15); NEUTROPHILS PERCENT AUTO 76 % (41-73); Platelet Count 135 K/mm3 (150-400); RDW Coefficient Variation 12.1 % (11.7-14.2); RDW Standard Deviation 41.9 fL (35.1-46.3); Red Blood Cell Count 4.45 M/mm3 (4.30-5.90); White Blood Cell Count 9.94 K/mm3 (4.00-11.30)
[2022-10-08 08:55] LABS: Source, Urine Clean Catch
[2022-10-08 09:00] LABS: Albumin, Blood 3.9 g/dL (3.4-5.0); Albumin/Globulin Ratio 1.1 (0.8-1.8); Bilirubin, Total 3.4 mg/dL (0.1-1.0); Bun/Creatinine Ratio 16.4 (12.0-20.0); Calcium, Blood 8.8 mg/dL (8.5-10.1); Creatinine, Blood 1.1 mg/dL (0.60-1.20); Globulin, Blood 3.5 g/dL (2.2-4.0); Potassium, Blood 3.7 mmol/L (3.5-5.5); Total Protein, Blood 7.4 g/dL (6.4-8.2)
[2022-10-08 09:00] LABS: Appearance, Urine Clear (Clear); Bilirubin, Urine Neg (Neg); Blood, Urine Neg (Neg); Color, Urine Yellow (P-Yellow); Glucose Qualitative, Urine Neg (Neg); Ketones, Urine Neg (Neg); Leukocyte Esterase, Urine Neg (Neg); Nitrite, Urine Neg (Neg); Protein, Urine Neg (Neg); Urobilinogen, Urine NORM (Normal)
[2022-10-08] MEDS ORDERED: MOXI400 PO (09:52)
[2022-10-08] MEDS ORDERED: HYDR1TAB94 PO (09:52)
[2022-10-08] MEDS ORDERED: ONDA4ODT MM (09:52)
[2022-10-08 10:19] VITALS: BP 118/71
== END 2022-10-08 10:19 | disposition home or self-care (01) ==
LOC: ER 07:48
PROVIDERS: Student in an Organized Health Care Education/Training Program
DX: K57.32 Diverticulitis of large intestine without perforation or abscess without bleeding (principal); Z88.0 Allergy status to penicillin; Z88.8 Allergy status to other drugs, medicaments and biological substances; Z88.1 Allergy status to other antibiotic agents; Z79.899 Other long term (current) drug therapy; I12.9 Hypertensive chronic kidney disease with stage 1 through stage 4 chronic kidney disease, or unspecified chronic kidney disease; E03.9 Hypothyroidism, unspecified; N18.30 Chronic kidney disease, stage 3 unspecified
CPT/HCPCS: 74177; 80053; 81003; 85025; J1885; J2405; J3010; Q9967

== ENCOUNTER → 2023-07-18 | Outpatient (CLI) | payer MEDICARE ==
[~2023-07-18] MED LIST changes: +HYDR1TAB94 PO; +IBU800 M1 PO; +MOXI400 PO; +ONDA4ODT MM
== END ==
LOC: LAB SHORT 14:45 → LAB 14:45
DX: R30.0 Dysuria (principal)
CPT/HCPCS: 87086

== ENCOUNTER 2023-12-11 11:04 | Day surgery (SDC) | payer MEDICARE ==
[~2023-12-11] VITALS: Ht 174 cm; Wt 89.6 kg
[2023-12-11] VITALS (16 sets, daily range): BP systolic 127–172; BP diastolic 66–95
[~2023-12-11 11:04] MED LIST changes: +CARV3.125 PO; +Flonase 0.05% N16 GM
[2023-12-11] MEDS ORDERED: OxyCODONE HCL 10 MG TABCR PO SCH ×2 (11:35→12:35)
[2023-12-11] MEDS ORDERED: Lactated Ringer's 1,000 ML IV SCH ×2 (11:35→14:00)
[2023-12-11] MEDS ORDERED: Ropivacaine 0.5% HCl/Pf 123.125 MG,EPINEPHrine HCL 0.25 MG,Ketorolac Tromethamine 15 MG... INFIL SCH (11:35)
[2023-12-11] MEDS ORDERED: Vancomycin HCL 1,000 MG in NS 250 ML IV SCH (11:35)
[2023-12-11] MEDS ORDERED: Acetaminophen 500 MG Tab PO SCH ×2 (11:35→16:00)
[2023-12-11] MEDS ORDERED: Chlorhexidine Mouth Care 15 ML UDC MT SCH (11:35)
[2023-12-11] MEDS ORDERED: Tranexamic Acid 100 ML IV SCH (11:37)
[2023-12-11] MEDS ORDERED: Nexium40 MG PO (11:44)
[2023-12-11] MEDS ORDERED: CeFAZolin Sodium 2,000 MG in NS 100 ML IV SCH ×2 (12:15→22:30)
[2023-12-11] MEDS ORDERED: propofoL 20 ML IV ONE (12:28)
[2023-12-11] MEDS ORDERED: Lidocaine HCl 2% 20 ML MDV ONE (12:28)
[2023-12-11] MEDS ORDERED: FentaNYL Citrate 50 MCG/ML 2 ML Injection ONE ×2 (12:29→16:44)
--- NOTE | 2023-12-11 12:53 | NUR ---
PT HAS REDDENED SKIN AROUND L ANKLE THAT SPREADS UP THE MAJOR. PT CAME TO [facility] WITH LEG IN THIS CONDITION AND SEES AN MD ABOUT IT REGULARLY.
--- NOTE | 2023-12-11 13:29 | NUR ---
PT HAS SENSITIVITY TO MANY ANTIBIOTICS. WHILE ADMINISTERING VANCOMYCIN 1GM ORDERED BY MD, PT DEVELOPED A RASH AND ITCHINESS ON R SHOULD, R CHEST, AND PROXIMAL TO IV SITE. IV LINE WITH VANCO DISCONNECTED SOON NOTIFIED BY PT AT 1323, LACTATED RINGERS TKO KEPT ON. PT REPORTS ABOUT 10 MINUTES LATER AT 1323 THE ITCHING HAS DISCONTINUED. THE REDNESS ON CHEST, R SHOULDER, AND PROXIMAL TO IV HAS ALSO CLEARED UP.
[2023-12-11] MEDS ORDERED: Metoclopramide HCl 5MG / ML 2ML Vial IV PRN (13:50)
[2023-12-11] MEDS ORDERED: Ondansetron HCl 2 MG / ML 2ML Vial IV PRN ×2 (13:50→15:20)
[2023-12-11] MEDS ORDERED: OxyCODONE HCL 5 MG TAB PO PRN ×2 (13:50→13:55)
[2023-12-11] MEDS ORDERED: HYDROmorphone HCl/Pf 1MG SYR IV PRN ×2 (13:55→15:15)
[2023-12-11] MEDS ORDERED: Promethazine HCl 25 MG Tab PO PRN (13:55)
[2023-12-11] MEDS ORDERED: Bisacodyl 10 MG Supp PR PRN (13:55)
[2023-12-11] MEDS ORDERED: DiphenhydrAMINE HCL 25 MG Cap PO PRN (14:00)
[2023-12-11] MEDS ORDERED: Magnesium Hydroxide Conc 10 ML UDC PO PRN (14:00)
[2023-12-11] MEDS ORDERED: Rocuronium Bromide 10 MG/ML 5ML Injection IV ONE (14:10)
[2023-12-11] MEDS ORDERED: ePHEDrine Sulfate 50 MG/ML 1ML Injection ONE (14:49)
[2023-12-11] MEDS ORDERED: Phenylephrine HCl 100 MCG/ML-NS 10MLSYR (1MG/10ML) ONE (14:51)
[2023-12-11] MEDS ORDERED: HYDROmorphone HCl/Pf 1MG SYR ONE (15:08)
[2023-12-11] MEDS ORDERED: Ondansetron HCl 2 MG / ML 2ML Vial ONE (15:15)
[2023-12-11] MEDS ORDERED: Dexamethasone Sod Phos 10 MG/ML 1ML VIAL ONE (15:15)
[2023-12-11] MEDS ORDERED: FentaNYL Citrate 50 MCG/ML 2 ML Injection IV PRN ×2 (15:15)
[2023-12-11] MEDS ORDERED: Sugammadex Sodium 200 MG/2ML SDV (100 MG/ML) ONE (15:58)
[2023-12-11] MEDS ORDERED: AmLODIPine Besylate 5 MG Tab PO SCH (18:00)
[2023-12-11] MEDS ORDERED: Ketorolac Tromethamine 15mg Vial IV SCH (18:00)
[2023-12-11] MEDS ORDERED: Carvedilol 3.125 MG Tab PO SCH (18:00)
--- NOTE | 2023-12-11 18:38 | NUR ---
PATIENT ARRIVED FROM PACU TODAY. POD 0 LEFT TOTAL KNEE PATIENT IS A&OX4. VS ARE WNL AND IS ON RA. PATIENT REPORTS "DISCOMFORT" FEELING IN HIS BLADDER. PATIENT ATTEMPTED TO VOID IN A URNAL STANDING AT BEDSIDE WITH FWW AND GAIT BELT AND ONLY VOIDED 100ML. PATIENT STILL REPORTED THE "DISCOMFORT" FEELING AFTER VOIDING 100ML. THIS NURSE BLADDER SCANNED THE PATIENT AND IT SHOWED 425 ML OF URINE IN HIS BLADDER. THIS NURSE STRAIGHT CATHED THE PATIENT PER PROTOCOL AND PATIENT HAD AN OUTPUT OF 500ML OF URINE. PATIENT REPORTS "I FEEL A LOT BETTER NOW AFTER EMPTYING NOW!". PATIENT REPORTS NO PAIN AT THIS TIME. HIS LEFT KNEE HAS HUNTER WRAP THAT IS C/D/I. HE DENIES NUMBNESS OR TINGLING IN ALL EXTREMITIES. PATIENT IS LAYING IN BED WITH POLAR PACK IN PLACE AND CALL LIGHT IN REACH.
[2023-12-11] MEDS ORDERED: PROBIOTIC1 EA13 PO (18:45)
[2023-12-11] MEDS ORDERED: Docusate Sodium 100 MG Cap PO SCH (21:00)
[2023-12-11] MEDS ORDERED: NS 250 ML IV PRN (21:35)
[2023-12-12] MEDS ORDERED: Vancomycin HCL 1,000 MG in NS 250 ML IV SCH (00:30)
[2023-12-12 03:47] VITALS: BP 155/81
[2023-12-12 05:35] LABS: BASOPHILS ABSOLUTE AUTO 0.01 K/mm3 (0.00-0.23); BASOPHILS PERCENT AUTO 0 % (0-2); EOSINOPHILS PERCENT AUTO 0 % (0-6); Hematocrit 39.7 % (37.0-53.0); IMMATURE GRAN ABSOLUTE AUTO 0.02 K/mm3 (0.00-0.10); IMMATURE GRAN PERCENT AUTO 0 % (0-1); LYMPHOCYTES ABSOLUTE AUTO 0.81 K/mm3 (0.84-5.20); LYMPHOCYTES PERCENT AUTO 8 % (21-46); MONOCYTES ABSOLUTE AUTO 0.47 K/mm3 (0.16-1.47); MONOCYTES PERCENT AUTO 4 % (4-13); Mean Corpuscular HGB 31.4 pg (26.0-34.0); Mean Corpuscular HGB Conc 35.3 g/dL (31.5-36.5); Mean Corpuscular Volume 89 fL (80-100); Mean Platelet Volume 10.7 fL (9.1-12.4); NEUTROPHILS ABSOLUTE AUTO 9.29 K/mm3 (1.96-9.15); NEUTROPHILS PERCENT AUTO 88 % (41-73); Platelet Count 164 K/mm3 (150-400); RDW Coefficient Variation 12.2 % (11.7-14.2); RDW Standard Deviation 39.8 fL (35.1-46.3); Red Blood Cell Count 4.46 M/mm3 (4.30-5.90)
[2023-12-12 05:57] LABS: Bun/Creatinine Ratio 13.8 (12.0-20.0); Calcium, Blood 8.4 mg/dL (8.5-10.1); Creatinine, Blood 1.16 mg/dL (0.60-1.20); Magnesium, Blood 1.6 mg/dL (1.6-2.4); Potassium, Blood 4.3 mmol/L (3.5-5.5)
[2023-12-12] MEDS ORDERED: Omeprazole 20 MG CapCR PO SCH (06:00)
[2023-12-12] MEDS ORDERED: Pantoprazole Sodium 40 MG Tab PO SCH (06:00)
[2023-12-12] MEDS ORDERED: Levothyroxine Sodium 0.125 MG Tab PO SCH (06:00)
--- NOTE | 2023-12-12 06:23 | NUR ---
SHIFT SUMMARY NOC. PT POD 1 FOR LEFT TOTAL KNEE. DRESSING C/D/I WITH HUNTER WRAP AND POLAR PACK IN PLACE. PT TOLERATING PO AND IS VOIDING URINE. BLADDER SCAN AT 4AM SHOWED 90ML POST VOID. PT DENIES PAIN AND HAS BEEN MEDICATED PER SCHEDULED ORDERS. PT RESTED WITH EYES CLOSED AND CALL LIGHT IN REACH.
[2023-12-12 07:22] VITALS: BP 130/78
[2023-12-12] MEDS ORDERED: OXAYDO5 M3 PO (08:30)
[2023-12-12] MEDS ORDERED: PROM25 PO (08:31)
[2023-12-12] MEDS ORDERED: XARELTO20 MG PO (08:32)
[2023-12-12] MEDS ORDERED: SULTRIDS PO (08:32)
[2023-12-12] MEDS ORDERED: Trimethoprim/Sulfamethoxazole DS Tab PO SCH (09:00)
[2023-12-12] MEDS ORDERED: Fluticasone 0.05% Nasal Spray SCH (09:00)
[2023-12-12] MEDS ORDERED: Losartan Potassium 50 MG Tab PO SCH (09:00)
[2023-12-12] MEDS ORDERED: Rivaroxaban 10 MG Tab PO SCH ×2 (09:00)
--- NOTE | 2023-12-12 10:01 | NUR ---
DISCHARGE SUMMARY POD1 L TKA, A/OX4, VSS, TOLERATING PO, DENIES PAIN, AMBULATING WELL, VOIDING INDEPENDENTLY, AQUACELL DRESSING PLACED THIS AM BY ORTHO AND IS C/D/I, IV ACCESS REMVOED WHILE DISCUSSING DISCHARGE INSTRUCTIONS. DISCUSSED DC INSTRUCTIONS INCLUDING HOME CARE, MEDICATIONS, AND FOLLOW UP APPOINTMENTS, PROVIDED EXTRA DRESSINGS PER ORTHO. NO QUESTIONS AT THIS TIME, ESCORTED OUT VIA WC TO PRIVATE AUTO TO GO HOME.
== END 2023-12-12 09:57 | disposition home or self-care (01) ==
LOC: ORSCMMR 11:04 → SURS 17:56 → ORSCMMR 12-12 09:57
PROVIDERS: Orthopaedic Surgery
PROC: 0SRD0J9 Replacement of Left Knee Joint with Synthetic Substitute, Cemented, Open Approach (ICD-10-PCS; principal; 2023-12-11 14:30)
DX: M17.0 Bilateral primary osteoarthritis of knee (principal); I25.10 Atherosclerotic heart disease of native coronary artery without angina pectoris; Z96.643 Presence of artificial hip joint, bilateral; K21.9 Gastro-esophageal reflux disease without esophagitis; E03.9 Hypothyroidism, unspecified; E66.9 Obesity, unspecified; Z68.39 Body mass index [BMI] 39.0-39.9, adult; Z79.899 Other long term (current) drug therapy
CPT/HCPCS: 36415; 73560-LT; 80048; 83735; 85025; 97110; 97116; 97162; A9270; C1713; C1776; J0171; J0690; J0735; J1100; J1170; J1885; J2371; J2405; J2704; J2795; J3010; J3370; J7050; J7120

== ENCOUNTER 2024-05-30 03:47 | Emergency (ER) | payer MEDICARE ==
[~2024-05-30] VITALS: Ht 172.7 cm; Wt 79.4 kg
[~2024-05-30 03:47] MED LIST changes: +Nexium40 MG PO; +OXAYDO5 M3 PO; +PROBIOTIC1 EA13 PO; +PROM25 PO; +SULTRIDS PO; +XARELTO20 MG PO
[2024-05-30 04:14] LABS: BASOPHILS ABSOLUTE AUTO 0.04 K/mm3 (0.00-0.23); BASOPHILS PERCENT AUTO 1 % (0-2); EOSINOPHILS ABSOLUTE AUTO 0.06 K/mm3 (0.00-0.68); EOSINOPHILS PERCENT AUTO 1 % (0-6); Hemoglobin 13.7 g/dL (13.5-17.5); IMMATURE GRAN ABSOLUTE AUTO 0.02 K/mm3 (0.00-0.10); IMMATURE GRAN PERCENT AUTO 0 % (0-1); LYMPHOCYTES ABSOLUTE AUTO 1.04 K/mm3 (0.84-5.20); LYMPHOCYTES PERCENT AUTO 21 % (21-46); MONOCYTES ABSOLUTE AUTO 0.58 K/mm3 (0.16-1.47); MONOCYTES PERCENT AUTO 12 % (4-13); Mean Corpuscular HGB 31.1 pg (26.0-34.0); Mean Corpuscular HGB Conc 35.1 g/dL (31.5-36.5); Mean Corpuscular Volume 89 fL (80-100); Mean Platelet Volume 10.9 fL (9.1-12.4); NEUTROPHILS ABSOLUTE AUTO 3.17 K/mm3 (1.96-9.15); NEUTROPHILS PERCENT AUTO 65 % (41-73); Platelet Count 146 K/mm3 (150-400); RDW Standard Deviation 42.4 fL (35.1-46.3); White Blood Cell Count 4.91 K/mm3 (4.00-11.30)
[2024-05-30 04:15] LABS: Source, Urine Voided
[2024-05-30 04:21] LABS: Bilirubin, Urine Neg (Neg); Blood, Urine 1+ (Neg); Glucose Qualitative, Urine Neg (Neg); Ketones, Urine Neg (Neg); Leukocyte Esterase, Urine Neg (Neg); Nitrite, Urine Neg (Neg); Protein, Urine 1+ (Neg); Urobilinogen, Urine 1+ (Normal)
[2024-05-30 04:35] LABS: Appearance, Urine Clear (Clear); Color, Urine Yellow (P-Yellow)
[2024-05-30 04:44] LABS: Albumin, Blood 3.6 g/dL (3.4-5.0); Bun/Creatinine Ratio 11.5 (12.0-20.0); Calcium, Blood 8.7 mg/dL (8.5-10.1); Creatinine, Blood 1.31 mg/dL (0.60-1.20); Globulin, Blood 3.7 g/dL (2.2-4.0); Potassium, Blood 3.2 mmol/L (3.5-5.5); Total Protein, Blood 7.3 g/dL (6.4-8.2)
[2024-05-30 05:09] LABS: Bacteria Rare /hpf; Red Blood Cells, Urine 0-2 /hpf (0-2); Squamous Epithelial Cells Rare /hpf (Few); White Blood Cells, Urine 0-2 /hpf (0-5)
[2024-05-30] MEDS ORDERED: Potassium Chloride 20 MEQ/15 ML UDC PO ONE (09:05)
[2024-05-30] MEDS ORDERED: Ketorolac Tromethamine 30mg Vial IV ONE (09:05)
[2024-05-30] MEDS ORDERED: MOXI400 PO (09:07)
[2024-05-30 09:20] VITALS: BP 168/93
== END 2024-05-30 09:40 | disposition home or self-care (01) ==
LOC: ER 03:47
PROVIDERS: Emergency Medicine
DX: K57.92 Diverticulitis of intestine, part unspecified, without perforation or abscess without bleeding (principal); I10 Essential (primary) hypertension; E03.9 Hypothyroidism, unspecified; Z79.51 Long term (current) use of inhaled steroids; Z79.899 Other long term (current) drug therapy; Z88.0 Allergy status to penicillin; Z88.1 Allergy status to other antibiotic agents; Z88.8 Allergy status to other drugs, medicaments and biological substances
CPT/HCPCS: 74177; 80053; 81001; 83605; 83690; 85025; 96374-59; 99284-25; A9270; J1885; Q9967

== ENCOUNTER 2025-05-21 09:50 | Day surgery (SDC) | payer MEDICARE ==
[~2025-05-21] VITALS: Ht 177.8 cm; Wt 89.0 kg
[2025-05-21 13:05] VITALS: BP 135/77
== END 2025-05-21 12:45 | disposition home or self-care (01) ==
LOC: ORSCSDS 09:50
PROVIDERS: Internal Medicine Gastroenterology
PROC: 0DBH8ZX Excision of Cecum, Via Natural or Artificial Opening Endoscopic, Diagnostic (ICD-10-PCS; principal; 2025-05-21 11:15)
PROC: 0DBK8ZX Excision of Ascending Colon, Via Natural or Artificial Opening Endoscopic, Diagnostic (ICD-10-PCS; principal; 2025-05-21 11:15)
PROC: 0DBL8ZX Excision of Transverse Colon, Via Natural or Artificial Opening Endoscopic, Diagnostic (ICD-10-PCS; principal; 2025-05-21 11:15)
PROC: 0DBN8ZX Excision of Sigmoid Colon, Via Natural or Artificial Opening Endoscopic, Diagnostic (ICD-10-PCS; principal; 2025-05-21 11:15)
DX: Z12.11 Encounter for screening for malignant neoplasm of colon (principal); K63.5 Polyp of colon; D12.3 Benign neoplasm of transverse colon; D12.5 Benign neoplasm of sigmoid colon; K57.30 Diverticulosis of large intestine without perforation or abscess without bleeding; K64.4 Residual hemorrhoidal skin tags; Z86.0101 Personal history of adenomatous and serrated colon polyps; Z80.0 Family history of malignant neoplasm of digestive organs; K21.9 Gastro-esophageal reflux disease without esophagitis; I12.9 Hypertensive chronic kidney disease with stage 1 through stage 4 chronic kidney disease, or unspecified chronic kidney disease; N18.30 Chronic kidney disease, stage 3 unspecified; G47.33 Obstructive sleep apnea (adult) (pediatric); J45.909 Unspecified asthma, uncomplicated; Z79.899 Other long term (current) drug therapy
CPT/HCPCS: 88305; J2704; J7120